=== PATIENT | male | born 1990 ===

== ENCOUNTER 2022-02-14 16:55 | Emergency (ER) | payer OTHER ==
[~2022-02-14] VITALS: Ht 182.9 cm; Wt 104.3 kg
[2022-02-14] MEDS ORDERED: CYCL10 PO (20:26)
== END 2022-02-14 20:50 | disposition home or self-care (01) ==
LOC: ER 16:55
DX: M54.2 Cervicalgia (principal); R51.9 Headache, unspecified; Z88.8 Allergy status to other drugs, medicaments and biological substances; Z88.5 Allergy status to narcotic agent; V49.9XXA Car occupant (driver) (passenger) injured in unspecified traffic accident, initial encounter
CPT/HCPCS: 70450; 72125; 99284-25; A9270